=== PATIENT | female | born 1960 | race Caucasian/White ===

== ENCOUNTER 2019-11-15 10:11 | Inpatient (IN) | payer OTHER ==
[2019-11-09 10:34] LABS: ABSOLUTE BASOPHILS 0.1 thou/uL (0.0-0.2); ABSOLUTE EOSINOPHILS 0.2 thou/uL (0.0-0.7); ABSOLUTE LYMPHOCYTES 1.5 thou/uL (0.8-5.3); ABSOLUTE MONOCYTES 0.5 thou/uL (0.0-1.2); ABSOLUTE NEUTROPHILS 4.7 thou/uL (1.6-8.1); EOSINOPHILS 2.9 %; HEMATOCRIT 42.2 % (37.0-47.0); HEMOGLOBIN 14.1 gm/dL (12.0-15.0); LYMPHOCYTES 21.7 %; MCH 27.8 pg (26.0-34.0); MCHC 33.3 g/dL (28.0-37.0); MCV 83.4 fL (80.0-100.0); MPV 7.9 fl. (7.2-11.1); NUCLEATED RBCS 0 /100WBC; PLATELET COUNT* 319 thou/uL (150-400); POLYS 67.4 %; RBC 5.06 mil/uL (4.20-5.00); RDW-CV 14.3 % (10.5-14.5)
[2019-11-09 10:40] LABS: APTT 28.2 Seconds (25.0-31.3); PROTIME 10.3 Seconds (9.20-11.50)
[2019-11-09 11:03] LABS: CALCIUM 8.7 mg/dL (8.5-10.1); POTASSIUM 4.4 mmol/L (3.5-5.1); TOTAL BILIRUBIN 0.6 mg/dL (<0.1-1.0); TOTAL PROTEIN 6.9 g/dL (6.4-8.2)
[2019-11-09 11:54] LABS: ESR (SEDRATE) 10 mm/hr (0-30)
--- NOTE | 2019-11-09 12:33 | EKG ---
[place] [address] ELECTROCARDIOGRAM REPORT Name: KASIA MOBLEY Room: [facility]#: [id number] Admission: Attend Phys: John Velez DO Discharge: Date of : 64 Date of Service: 11/09/19 1011 Report #: [id number] THIS REPORT FOR: //name// [facility] Test Date: 2019-11-09 Test Time: 10:11:06 Pat Name: KASIA MOBLEY Department: Room: Gender: Broadcaster: : 1960 Requested By: John Alejo Order Number: [id number] Orestes MD: Adi Guerrero Measurements Intervals Santa Rate: 56 P: 26 UT: 212 QRS: 38 QRSD: 103 T: 43 QT: 427 QTc: 413 Interpretive Statements Sinus rhythm Prolonged UT interval Left ventricular hypertrophy No previous ECG available for comparison Electronically Signed On 11-09-2019 12:32:28 CDT by Adi Guerrero [email or web address] <ELECTRONICALLY SIGNED> By: Adi Guerrero MD, [facility] 11/09/19 1232 1011 Adi Guerrero MD, FACC /EPI
[~2019-11-15] VITALS: Ht 172.7 cm; Wt 84.8 kg
--- NOTE | ~2019-11-15 | OP ---
[address] [address] OPERATIVE REPORT Name: KASIA MOBLEY Room: [address]#: [id number] Admission: 11/15/19 Attend Phys: John Velez DO Discharge: Date of : 64 Report #: [id number] THIS REPORT FOR: //name// cc: JOSSIE King family physician/PCP JOSSIE - Christine family physician/PCP ~ THIS REPORT FOR: //name// CC: JOSSIE physician/PCP John Velez DICTATED BY: Lucas Early DO DATE OF SERVICE: 11/15/2019 INDICATION: The patient is a 59-year-old female with a long past medical history of right knee pain, failing conservative measures including weight loss, corticosteroid injections, nonsteroidal anti-inflammatories and steroid injections to the knee. She presents today for right total knee arthroplasty. PREOPERATIVE DIAGNOSIS: End-stage tricompartmental osteoarthritis of the right knee. POSTOPERATIVE DIAGNOSES: End-stage tricompartmental osteoarthritis of the right knee. PROCEDURE: Primary right total knee arthroplasty. DESCRIPTION OF PROCEDURE: The patient was brought back to the operating room and did receive the benefit of general anesthesia. She was also given 2 grams of Ancef at least 30 minutes prior to incision. The patient's right knee, thigh and leg were scrubbed, prepped and draped in the usual sterile fashion. A tourniquet was placed nonsterilely on the leg prior to sterile draping. The tourniquet was inflated to provide adequate hemostasis. Tourniquet time was being less than 1 hour. A straight anterior midline incision was carried down through the skin and subcutaneous knee over the anterior right knee. Unilateral flaps were developed on both medially and laterally. A median parapatellar incision was then made. The extensor mechanism was partially divided and the patella was everted out laterally. There was some bursal tissue taken down as well and the synovial fluid was suctioned upon entering the joint, Femoral bone stirrup spurs and osteophytes were taken down as well at this point. Following this, the knee was brought up into full flexion. An intramedullary opening reamer was placed anteromedial approximately 1 cm superior to the posterior cruciate ligament. The canal was entered. Following this, the drill was gone and then a femoral intramedullary guide was used being in 5 degrees of valgus placed and pinned. Following this, the distal femoral cut was made. A resection of 9 mm of bone was taken off. The guide [place] [address] OPERATIVE REPORT Name: KASIA MOBLEY [address]#: [id number] Admission: 11/15/19 Attend Phys: John Velez DO Discharge: Date of : 64 Report #: [id number] moved on to the tibia. Of course, we did check to make sure the surface was flat and cut, the cut was adequate with the jared wing guide on the tibia. The extramedullary alignment guide was placed around the ankle being on the medial one-third of the tibial tubercle. The alignment guide was checked for both posterior slope as well as adequate resection of bone on both the low and high sides. The alignment guide was noted to be centered over the second metatarsal as well as the tibialis anterior on the ankle. The oscillating saw was then used to make a bone cut of 9 mm coming off the high side of the tibia and the surface was checked to be flat and further soft tissue dissection removing the medial and lateral meniscus as well as the anterior and posterior cruciate ligaments was then performed. Following this, a size 9 extension block was then placed in the knee and the gaps were checked both in full extension, 60 degrees of flexion and 90 degrees of flexion. Anterior and posterior drawer was also checked at that point as well. We then went to size the femur. The femoral AP sizing guide was used. Femur was noted to be a size 5. Thus, it was pinned, spots were pinned. At that point, next we went on to the femoral rotation guide, the 5-in-1 cutting block and the anterior, posterior as well as the chamfer cuts were created. Following this, the tibial trial implant was placed as well as the femoral trial implant and a trial poly size of 9 was used and a posterior stabilized. We then went through and checked the gaps again. We then sized and cut our patella using the Journey II System patellar reamer. A 16 mm of bone was left after reaming. The patella was sized and noted to be 35 mm in size. Following this, we checked all of the gaps in both 30 degrees, 60 degrees 90 degrees of flexion as well as anterior and posterior drawer. The implant was noted to be stable and well balanced. At that point, the trial implants were all removed and the tibia was then reamed and punched through the keel, then the tibia component was removed. Following this, Pulsavac lavage was used to thoroughly wash the joint and remove any excess bone from the area. At that time, further soft tissue dissection was done. Two bags of [employer] cement was mixed. The knee was adequately dried and right size 5 cruciate stabilized [employer] Journey II Oxinium femoral component was placed following a right size 4 Journey nonporous tibial baseplate, a 35 mm oval Latoya II patellar component was placed on the patella and a size 9 Journey II BCS XLPE insert was placed into the joint. The posterior capsule was injected with a pain cocktail mixture. Further osteophytes were removed and the cement was allowed to dry for 12 minutes time. Following this, the capsule was closed with Vicryl suture in dacilw-bw-vwlos fashion as well as a running Stratafix suture. Vancomycin was placed within the joint capsule and the subcutaneous tissue area vancomycin powder. The subcutaneous tissue was closed with a 2-0 Monocryl in a simple interrupted fashion and a running Stratafix suture was used to close the skin. Dermabond was placed to follow and sterile Mepilex bandage was placed over the top. The knee was again then checked at the end to make sure all gaps were appropriately balanced and the [place] [address] OPERATIVE REPORT Name: KASIA MOBLEY [address] [id number] Admission: 11/15/19 Attend Phys: John Velez DO Discharge: Date of : 64 Report #: [id number] motion, which she did and FLORA hose were placed over the top. The patient was taken stable to the postoperative area. By: [id number] Velez DO /nt
[~2019-11-15 10:11] MED LIST: CITRUCEL479 GM PO; ENBREL50 MG/1 ML SUBQ; LABETALOL HCL100 MG PO
[2019-11-15] MEDS ORDERED: TYLENOL EXTRA500 MG PO (12:03)
[2019-11-15 12:50] VITALS: BP 142/88
[2019-11-15 16:30] VITALS: BP 158/85
--- NOTE | 2019-11-15 16:42 | NUR ---
PT ADMITTED POST OP. PT ALERT AND ORIENTED, PT IS DROWSY AND STATES FEELS FUZZY. PT ON ROOM AIR. PT RESTING IN BED. FALL RISK PRECAUTIONS IN PLACE. VITALS STABLE. WILL CONTINUE TO MONITOR.
--- NOTE | 2019-11-15 17:08 | NUR ---
PT REMAINED ALERT AND ORIENTED. PT RESTING IN BED. PT EDUCATED ON PAIN CONTROL AND WHEN TO CALL OUT WHEN PAIN INCREASES FOR PAIN MEDS. FALL RISK PRECAUTIONS IN PLACE. HOURLY ROUNDING COMPLETED. WILL CONTINUE TO MONITOR.
[2019-11-15 20:00] VITALS: BP 139/73
[2019-11-16] VITALS: BP 137/65
[2019-11-16 03:37] VITALS: BP 136/72
[2019-11-16 03:54] LABS: HEMATOCRIT 37.3 % (37.0-47.0); HEMOGLOBIN 12.4 gm/dL (12.0-15.0)
--- NOTE | 2019-11-16 04:34 | NUR ---
PT A&O X 4. VSS ON RA. MEDS GIVEN ORDERED. PAIN MANAGED WITH TORADOL AND NORCO. DENIED N/V. BENEDRYL GIVEN X1 FOR ITCHING. PT UP TO THE BATHROOM WITH WALKER WITH STANDBY ASSIST. DRESSING TO RT KNEE C/D/I. ICE PACKS, TEDS, SCDS IN PLACE. WILL CONTINUE TO MONITOR.
[2019-11-16 07:15] VITALS: BP 131/59
[2019-11-16] MEDS ORDERED: HYDROCODON-ACE1 EAC7 PO (07:53)
[2019-11-16] MEDS ORDERED: TRAMADOL 50 MG50 MG PO (07:53)
[2019-11-16] MEDS ORDERED: ELIQUIS5 MG PO (07:53)
[2019-11-16] MEDS ORDERED: COLACE100 MG PO (08:57)
[2019-11-16 09:22] VITALS: BP 131/59
[2019-11-16] MEDS ORDERED: ASPIRIN325 PO (09:28)
--- NOTE | 2019-11-16 09:55 | NUR ---
RECIEVED O.T. EVAL AND TX ORDERS. WILL DEFER TO P.T. AT THIS TIME. PLEASE ORDER FURTHER O.T. SERVICES IF NEEDED.
--- NOTE | 2019-11-16 10:00 | NUR ---
PT.TO DISCHARGE TODAY. RN CALLED IN [facility]QU[facility] TO [facility]. COPAY WAS $65. PT.REQUESTED DIFFERENT BLOOD THINNER. RN WILL CONTACT DR. CUELLO WITH PT. SHE SAID HER AND 7 Y.O.SON WILL BE HOME WITH HER. SHE WOULD LIKE TO DO OUTPT.THERAPY AT [facility] IN [place]. CM FAXED DISCHARGE ORDERS,FACE SHEET AND OP REPORT TO [phone]. THEY WILL CALL PT.TO SET UP APPTS. PT.SAID SHE WILL NEED A FWW. OK'D BY [facility]. FAXED ORDER,FACE SHEET TO HER AT [facility]. OUT BI ANALYST WILL DISPENSE ONE TO PT.PRIOR TO DISCHARGE. PT.IS NORMALLY INDEPENDENT AND ACTIVE.
--- NOTE | 2019-11-16 11:11 | NUR ---
PT GIVEN DISCHARGE INFORMATION, CARE NOTES, AND PRESCRIPTIONS. IV REMOVED. PT DENIED ANY FURTHER QUESTIONS OR CONERNS AT THIS TIME. PT BELONGINGS GATHERED. PT LEFT VIA WHEELCHAIR WITH NURSING STAFF TO HOME WITH OUTPATIENT THERAPY
[2019-11-16 11:13] VITALS: BP 131/59
== END 2019-11-16 11:25 | disposition home or self-care (01) | DRG 470 ==
LOC: M.ORTHSURG 10:11 → M.TBA 10:11 → M.PRE 11:30 → EDSTATUS 11:31 → M.PRE 11:31 → M.ORTHSURG 14:47 → M.PRE 15:33 → M.ORTHSURG 16:22
PROVIDERS: Orthopaedic Surgery; ADMIT Internal Medicine; ATTEND Internal Medicine
PROC: 0SRC069 Replacement of Right Knee Joint with Oxidized Zirconium on Polyethylene Synthetic Substitute, Cemented, Open Approach (ICD-10-PCS; principal; 2019-11-15)
DX: M17.11 Unilateral primary osteoarthritis, right knee (principal); I10 Essential (primary) hypertension; Z20.828 Contact with and (suspected) exposure to other viral communicable diseases; Z88.6 Allergy status to analgesic agent; Z88.8 Allergy status to other drugs, medicaments and biological substances; Z79.899 Other long term (current) drug therapy